=== PATIENT | female | born 1940 | race Caucasian/White ===

== ENCOUNTER 2016-08-29 17:25 | Inpatient (IN) | payer OTHER ==
[~2016-08-29] VITALS: Ht 154.9 cm; Wt 87.0 kg
[2016-08-29 17:59] LABS: HEMATOCRIT 40.8 % (36.0-46.0); MCH 29.8 PG (29.0-34.0); MCHC 34.6 G/DL (30.0-36.0); MCV 86.3 FL (83-99); MEAN PLAT.VOLUME 10.1 uM^3 (9.5-12.4); PLATELET COUNT 219 K/uL (156-360); RED BLOOD COUNT 4.73 M/uL (3.80-5.20); WHITE BLOOD COUNT 6.2 K/uL (4.1-10.2)
[2016-08-29 18:07] LABS: CHLORIDE 107 mEq/L (99-109); SODIUM 138 mEq/L (136-147)
[2016-08-29 18:08] LABS: GLUCOSE 105 mg/dL (70-99)
[2016-08-29 18:10] LABS: ANION GAP 12 MEQ/L (2-14)
[2016-08-29 18:12] LABS: GFR ESTIMATE (CALCULATED) > 59 mL/min/
[2016-08-29 18:13] LABS: UREA NITROGEN (BUN) 22 mg/dL (9-23)
[2016-08-29] MEDS ORDERED: SERTRALINE HCL50 MG PO (23:01)
[2016-08-29] MEDS ORDERED: LOVASTATIN20 MG PO (23:01)
[2016-08-29] MEDS ORDERED: DOXYCYCLINE HYC20 MG PO (23:01)
[2016-08-29] MEDS ORDERED: FISH OIL 1,001000 M2 PO (23:02)
[2016-08-29] MEDS ORDERED: RESTASIS MULTI5.5 ML BOTH EYES (23:02)
[2016-08-29] MEDS ORDERED: CALCIUM 500 MG1 EACH PO (23:02)
[2016-08-30 01:59] VITALS: BP 117/65
[2016-08-30 02:01] VITALS: BP 117/65
[2016-08-30 04:07] VITALS: BP 104/60
[2016-08-30 06:59] LABS: HEMATOCRIT 34.9 % (36.0-46.0); MCH 29.9 PG (29.0-34.0); MCHC 33.5 G/DL (30.0-36.0); MCV 89.3 FL (83-99); MEAN PLAT.VOLUME 10.5 uM^3 (9.5-12.4); PLATELET COUNT 191 K/uL (156-360); RBC DIS.WIDTH-CV 13.3 % (11.8-14.6); RBC DIS.WIDTH-SD 43.8 % (39-53); RED BLOOD COUNT 3.91 M/uL (3.80-5.20)
[2016-08-30 07:22] LABS: ANION GAP 8 MEQ/L (2-14); CHLORIDE 111 MEQ/L (99-109); GFR ESTIMATE (CALCULATED) > 59 mL/min/; GLUCOSE 94 mg/dL (70-99); POTASSIUM 3.8 MEQ/L (3.7-5.4); SAMPLE HEMOLYSIS CHECK 0; SAMPLE ICTERIC CHECK 0; SAMPLE LIPEMIA CHECK 0; SODIUM 142 MEQ/L (136-147); UREA NITROGEN (BUN) 18 mg/dL (9-23)
[2016-08-30 07:51] VITALS: BP 103/59
[2016-08-30 14:26] LABS: ADD MIUA? YES; BILIRUBIN NEGATIVE; BLOOD NEGATIVE; COLOR YELLOW ((YELLOW)); GLUCOSE (STRIP) NEGATIVE; KETONES NEGATIVE; LEUKOCYTES SMALL; NITRITE NEGATIVE; PROTEIN (STRIP) NEGATIVE; SPECIFIC GRAVITY 1.027 (1.000-1.030); UROBILINOGEN 0.2 MG/DL (0.2-1.0)
[2016-08-30 14:55] LABS: BACTERIA NONE SEEN /HPF; EPITHELIAL CELLS RARE /HPF; MUCUS TRACE /LPF; RED BLOOD CELLS 30-40 /HPF (0-5); UCUL ADDED? NO; WHITE BLOOD CELLS 15-20 /HPF (0-5)
[2016-08-30 15:42] VITALS: BP 108/55
[2016-08-31] VITALS (7 sets, daily range): BP systolic 110–152; BP diastolic 63–80
[2016-09-01 07:52] VITALS: BP 134/70
[2016-09-01 16:18] VITALS: BP 135/75
[2016-09-02 00:57] VITALS: BP 157/78
[2016-09-02 08:18] VITALS: BP 169/90
[2016-09-02 16:18] VITALS: BP 132/86
[2016-09-03 04:38] VITALS: BP 128/72
[2016-09-03 07:54] VITALS: BP 135/87
[2016-09-03] MEDS ORDERED: TRAMADOL HCL50 MG PO (11:26)
[2016-09-03] MEDS ORDERED: OXYCODONE HCL5 MG PO (11:26)
[2016-09-03] MEDS ORDERED: TYLENOL REGULA325 MG PO (11:27)
[2016-09-03] MEDS ORDERED: ONDANSETRON4 MG/2 ML IV (11:27)
[2016-09-03] MEDS ORDERED: DOCUSATE SODIU100 MG PO (11:27)
[2016-09-03] MEDS ORDERED: POLYETHYLENE GL17 GM PO (11:27)
[2016-09-03] MEDS ORDERED: PEPCID20 MG PO (15:39)
[2016-09-03] MEDS ORDERED: LOVENOX40 MG/0.4 SC (15:40)
[2016-09-03] MEDS ORDERED: PRAVACHOL40 MG PO (15:41)
[2016-09-03] MEDS ORDERED: ACETAMINOPHEN325 M1 PO (15:45)
== END 2016-09-03 14:58 | DRG 517 ==
LOC: EME 17:25 → 3EAST 23:41 → EDOF 23:41 → 3EAST 08-30 01:33
PROVIDERS: Emergency Medicine; Hospitalist
PROC: 0QSF04Z Reposition Left Patella with Internal Fixation Device, Open Approach (ICD-10-PCS; principal; 2016-08-31)
DX: S82.042A Displaced comminuted fracture of left patella, initial encounter for closed fracture (principal); W01.0XXA Fall on same level from slipping, tripping and stumbling without subsequent striking against object, initial encounter; E78.00 Pure hypercholesterolemia, unspecified; E78.5 Hyperlipidemia, unspecified; M19.90 Unspecified osteoarthritis, unspecified site; F41.9 Anxiety disorder, unspecified; Z96.642 Presence of left artificial hip joint; Z96.651 Presence of right artificial knee joint
CPT/HCPCS: 71010; 73502; 73552; 73560; 73564; 73700; 76000; 80048; 81003; 85027; 93005; 97530 GP; 99281; 99284; G0378; J0690; J1170; J1644; J1650; J2250; J2270; J2405; J3010; J7030

== ENCOUNTER 2016-09-03 11:37 | Inpatient (IN) | payer OTHER ==
[~2016-09-03] VITALS: Ht 154.9 cm; Wt 83.6 kg
[~2016-09-03 11:37] MED LIST: CALCIUM 500 MG1 EACH PO; DOCUSATE SODIU100 MG PO; DOXYCYCLINE HYC20 MG PO; FISH OIL 1,001000 M2 PO; LOVASTATIN20 MG PO; ONDANSETRON4 MG/2 ML IV; OXYCODONE HCL5 MG PO; POLYETHYLENE GL17 GM PO; RESTASIS MULTI5.5 ML BOTH EYES; SERTRALINE HCL50 MG PO; TRAMADOL HCL50 MG PO; TYLENOL REGULA325 MG PO
[2016-09-03] MEDS ORDERED: PEPCID20 MG PO (15:39)
[2016-09-03] MEDS ORDERED: LOVENOX40 MG/0.4 SC (15:40)
[2016-09-03] MEDS ORDERED: PRAVACHOL40 MG PO (15:41)
[2016-09-03] MEDS ORDERED: ACETAMINOPHEN325 M1 PO (15:45)
[2016-09-03 16:23] VITALS: BP 149/68
[2016-09-03 20:28] LABS: HEMATOCRIT 34.1 % (36.0-46.0); MCV 88.1 FL (83-99); MEAN PLAT.VOLUME 10.1 uM^3 (9.5-12.4); PLATELET COUNT 222 K/uL (156-360); RBC DIS.WIDTH-SD 41.8 % (39-53); RED BLOOD COUNT 3.87 M/uL (3.80-5.20); WHITE BLOOD COUNT 7.7 K/uL (4.1-10.2)
[2016-09-03 20:51] LABS: ALKALINE PHOSPHATASE 55 IU/L (3-129); ANION GAP 7 MEQ/L (2-14); CHLORIDE 102 MEQ/L (99-109); GFR ESTIMATE (CALCULATED) > 59 mL/min/; GLUCOSE 92 mg/dL (70-99); POTASSIUM 3.9 MEQ/L (3.7-5.4); SAMPLE HEMOLYSIS CHECK 0; SAMPLE ICTERIC CHECK 0; SAMPLE LIPEMIA CHECK 0; SODIUM 136 MEQ/L (136-147); TOTAL BILIRUBIN 1.2 MG/DL (0.0-1.0); UREA NITROGEN (BUN) 13 mg/dL (9-23)
[2016-09-03 23:52] VITALS: BP 118/63
[2016-09-04 05:08] VITALS: BP 133/70
[2016-09-04 15:13] VITALS: BP 132/69
[2016-09-05 15:38] VITALS: BP 150/70
[2016-09-06 05:22] VITALS: BP 133/89
[2016-09-06 15:42] VITALS: BP 129/59
[2016-09-07 05:56] VITALS: BP 134/70
[2016-09-07 15:00] VITALS: BP 148/69
[2016-09-08 05:33] VITALS: BP 105/63
[2016-09-08 15:50] VITALS: BP 145/69
[2016-09-09 05:28] VITALS: BP 117/59
[2016-09-09 15:00] VITALS: BP 131/67
[2016-09-10 04:52] VITALS: BP 141/72
[2016-09-10] MEDS ORDERED: SENNA PLUS TAB1 EACH PO (13:31)
[2016-09-10] MEDS ORDERED: OXYCODONE HCL5 MG PO (13:31)
[2016-09-10] MEDS ORDERED: LOVENOX40 MG/0.4 SC (13:31)
== END 2016-09-10 15:45 | disposition home health service (06) | DRG 560 ==
LOC: 3WEST 11:37 → ENPENDDIS 09-10 → 3WEST 09-10 15:45
PROVIDERS: Psychiatry & Neurology Neurology
PROC: F07M0ZZ Range of Motion and Joint Mobility Treatment of Musculoskeletal System - Whole Body (ICD-10-PCS; principal; 2016-09-03)
DX: S82.002D Unspecified fracture of left patella, subsequent encounter for closed fracture with routine healing (principal); D62 Acute posthemorrhagic anemia; W01.0XXD Fall on same level from slipping, tripping and stumbling without subsequent striking against object, subsequent encounter; E78.00 Pure hypercholesterolemia, unspecified; E78.5 Hyperlipidemia, unspecified; R27.0 Ataxia, unspecified; G89.18 Other acute postprocedural pain
CPT/HCPCS: 80053; 85027; 97110 GO; 97530 GP; J1650